=== PATIENT | female | born 1985 | race African-American/Black ===

== ENCOUNTER 2018-06-16 16:23 | Inpatient (IN) ==
[2018-06-16] MEDS ORDERED: ONDANSETRON 4 MG/2 ML VIAL IV PRN (16:54)
[2018-06-16] MEDS ORDERED: MEPERIDINE 50 MG/1 ML VIAL IV PRN (16:54)
[2018-06-16] MEDS ORDERED: LACTATED RINGERS 1,000 ML IV SCH (17:00)
[2018-06-16] MEDS ORDERED: OXYTOCIN/LR 20 UNIT/1,000 ML BAG IV SCH (17:00)
[2018-06-16] MEDS ORDERED: diphenhydrAMINE 50 MG/1 ML VIAL IV PRN ×2 (17:14)
[2018-06-16] MEDS ORDERED: CITRIC ACID/SODIUM CITRATE 30 ML UDCUP PO ONE (17:14)
[2018-06-16] MEDS ORDERED: hydrOXYzine HCL 25 MG/1 ML VIAL IM PRN (17:14)
[2018-06-16] MEDS ORDERED: PROMETHAZINE 25 MG/1 ML VIAL IM ONE (17:14)
[2018-06-16] MEDS ORDERED: NALOXONE 0.4 MG/ML VIAL IV PRN (17:14)
[2018-06-16] MEDS ORDERED: ePHEDrine 50 MG/ML AMP IV PRN (17:14)
[2018-06-16] MEDS ORDERED: FAMOTIDINE 20 MG/2 ML VIAL IV ONE (17:14)
[2018-06-16] MEDS ORDERED: LACTATED RINGERS 1,000 ML IV ONE (17:14)
[2018-06-16 17:19] LABS: Basophils % 0.4 % (0.0-0.8); Eosinophils # 0.1 10*3/uL (0.0-0.87); Eosinophils % 0.7 % (0.00-10.9); Hematocrit 37.2 VOL% (35.7-47.0); Hemoglobin 12.6 GM/DL (12.0-16.0); Immature Granulocytes % 0.5 %; Immature Granulocytes Absolute 0.04 #; Lymphocytes # 1.7 10*3/uL (1.4-4.0); Lymphocytes % 23.1 % (21.3-54.2); Mean Corpuscular HGB Conc 33.9 GM/DL (32-36); Mean Corpuscular Hemoglobin 30 PG (27-34); Mean Corpuscular Volume 87.1 FL (87-102); Mean Platelet Volume 11.7 FL (9.6-12.0); Monocytes # 0.5 10*3/uL (0.11-0.8); Monocytes % 6.6 % (1.7-12.7); Neutrophils # 5.1 10*3/uL (1.4-7.4); Neutrophils % 68.7 % (38.7-73.9); Platelet Count 190 T/CUMM (130-400); Red Blood Count 4.27 MC/CUMM (3.8-5.5); Red Cell Distribution Width 12.3 % (9.3-17.3); White Blood Count 7.4 T/CUMM (4-12)
[2018-06-16] MEDS ORDERED: fentaNYL 2 MCG/ROPIV 0.2% EPID 100 ML EPIDURAL SCH (17:30)
[2018-06-16 17:45] LABS: Albumin 2.6 G/DL (3.4-5.0); Bilirubin,Total 0.6 MG/DL (0.2-1.0); Calcium 8.4 MG/DL (8.5-10.1); Osmolality,Calculated 269.1 MOS/KG (273-304); Potassium 3.6 MMOL/L (3.5-5.1); Total Protein 7.1 G/DL (6.4-8.3)
[2018-06-16 18:58] LABS: Apearance,Urine CLEAR (Clear); Bilirubin,Urine Negative (Negative); Blood, Urine Negative (Negative); Glucose,Urine (UA) 50 mg/dL (Negative); Ketones,Urine Negative (Negative); Mucus,Urine Occasional /LPF (Occasional); Nitrite,Urine Negative (Negative); Protein,Urine Negative; RBC,Urine 1 /HPF (0-4); Urine Color Straw (Yellow); Urine Specific Gravity 1.006 (1.001-1.035); Urine Urobilinogen < 2.0 EU/DL (0.2-1.0); WBC,Urine 14 /HPF (0-6)
[2018-06-17] MEDS ORDERED: LIDOCAINE 1% 50 ML VIAL ONE (00:27)
[2018-06-17 01:47] LABS: Cord Venous Blood HCO3 21.7 MMOL/L; Cord Venous Blood PCO2 36.9 MMHG
[2018-06-17] MEDS ORDERED: oxyCODONE/ACETAMINOPHEN 5-325 MG TABLET PO PRN ×2 (04:44)
[2018-06-17] MEDS ORDERED: ACETAMINOPHEN 325 MG TABLET PO PRN (04:44)
[2018-06-17] MEDS ORDERED: WITCH HAZEL PADS 100/JAR TOP PRN (04:44)
[2018-06-17] MEDS ORDERED: BISACODYL 10 MG SUPP RECTAL PRN (04:44)
[2018-06-17] MEDS ORDERED: HYDROCORTISONE 2.5% RECTAL CREAM 30 GM TUBE TOP PRN (04:44)
[2018-06-17] MEDS ORDERED: MEASLES/MUMPS/RUBELLA VACCINE 0.5 ML VIAL SUBCUT ONE (04:44)
[2018-06-17] MEDS ORDERED: DIPH/TET/ACEL PERT BOOSTER VACCINE 0.5 ML VIAL IM ONE (04:44)
[2018-06-17] MEDS ORDERED: RHO(D) IMMUNE GLOBULIN 300 MCG SYRINGE IM ONE (04:44)
[2018-06-17] MEDS ORDERED: LANOLIN 50% CREAM 0.3 OZ TUBE TOP PRN (04:44)
[2018-06-17] MEDS ORDERED: BENZOCAINE 20%/MENTHOL 0.5% SPRAY 56 GM CAN TOP PRN (04:44)
[2018-06-17] MEDS ORDERED: ACETAMINOPHEN/CODEINE 300-30 MG TABLET ONE (04:47)
[2018-06-17] MEDS: ACETAMINOPHEN/CODEINE 300-30 MG TABLET PO PRN (04:52)
[2018-06-17] MEDS: IBUPROFEN 800 MG TABLET PO PRN (04:53)
[2018-06-17] MEDS ORDERED: OXYTOCIN/LR 20 UNIT/1,000 ML BAG IV ONE ×2 (06:40→06:46)
[2018-06-17] MEDS: DOCUSATE SODIUM 100 MG CAPSULE PO SCH ×2 (08:30→22:25)
[2018-06-17] MEDS ORDERED: INFLUENZA VIRUS VACCINE 0.5 ML SYRINGE IM ONE (09:00)
[2018-06-18] MEDS: ACETAMINOPHEN/CODEINE 300-30 MG TABLET PO PRN (00:10)
[2018-06-18] MEDS: IBUPROFEN 800 MG TABLET PO PRN (00:10)
[2018-06-18 04:30] LABS: Basophils % 0.3 % (0.0-0.8); Eosinophils # 0.1 10*3/uL (0.0-0.87); Eosinophils % 0.4 % (0.00-10.9); Hemoglobin 10.5 GM/DL (12.0-16.0); Immature Granulocytes % 0.8 %; Immature Granulocytes Absolute 0.13 #; Lymphocytes # 2.9 10*3/uL (1.4-4.0); Lymphocytes % 18.7 % (21.3-54.2); Mean Corpuscular HGB Conc 32.8 GM/DL (32-36); Mean Corpuscular Hemoglobin 30 PG (27-34); Mean Corpuscular Volume 89.9 FL (87-102); Mean Platelet Volume 11.3 FL (9.6-12.0); Monocytes # 1.5 10*3/uL (0.11-0.8); Monocytes % 9.7 % (1.7-12.7); Neutrophils % 70.1 % (38.7-73.9); Platelet Count 174 T/CUMM (130-400); Red Blood Count 3.56 MC/CUMM (3.8-5.5); Red Cell Distribution Width 12.4 % (9.3-17.3); White Blood Count 15.8 T/CUMM (4-12)
[2018-06-18] MEDS: DOCUSATE SODIUM 100 MG CAPSULE PO SCH (08:51)
[2018-06-18 11:37] VITALS: BP 120/74
== END 2018-06-18 14:20 | disposition home or self-care (01) | DRG 560 ==
LOC: N.LDOUT 16:23 → N.LD 16:24 → N.OB 06-17 04:35
PROVIDERS: ADMIT Obstetrics & Gynecology; ATTEND Obstetrics & Gynecology